=== PATIENT | male | born 1970 | race Two or more races ===

== ENCOUNTER 2018-04-26 12:11 | Emergency (ER) | payer OTHER ==
[~2018-04-26] VITALS: Ht 165.1 cm; Wt 74.8 kg
== END 2018-04-26 20:10 | disposition home or self-care (01) ==
LOC: ER 12:11
DX: B34.9 Viral infection, unspecified (principal); E79.0 Hyperuricemia without signs of inflammatory arthritis and tophaceous disease

== ENCOUNTER 2022-02-21 11:03 | Emergency (ER) | payer OTHER ==
[~2022-02-21] VITALS: Ht 160 cm; Wt 68.0 kg
[2022-02-21] MEDS ORDERED: LOSARTAN POTASS25 MG (11:35)
[2022-02-21] MEDS ORDERED: LIPITOR20 MG PO (11:36)
== END 2022-02-21 15:36 | disposition home or self-care (01) ==
LOC: ER 11:03
DX: M54.89 Other dorsalgia (principal); Z20.822 Contact with and (suspected) exposure to COVID-19; I10 Essential (primary) hypertension; M54.2 Cervicalgia